=== PATIENT | male | born 1955 | race Asian ===

== ENCOUNTER 2016-09-07 08:11 | Outpatient (CLI) | payer OTHER ==
[2016-09-07 09:01] LABS: BILIRUBIN,URINE NEGATIVE (NEGATIVE); BLOOD, URINE NEGATIVE (NEGATIVE); CLARITY/URINE CLEAR (CLEAR); COLOR,URINE YELLOW (YELLOW); GLUCOSE,URINE 3+ (NEGATIVE); KETONES,URINE TRACE (NEGATIVE); LEUKOCYTE ESTERASE ,URINE NEGATIVE (NEGATIVE); NITRITE, URINE NEGATIVE (NEGATIVE); PROTEIN URINE NEGATIVE (NEGATIVE); UROBILINOGEN,URINE 0.2 (0.2-1.0)
[2016-09-07 09:13] LABS: BASOPHILS % (AUTO) 0.3 % (0.0-2.0); EOSINOPHILS # (AUTO) 0.2 K/uL (0.0-0.4); EOSINOPHILS % (AUTO) 3.5 % (0.0-4.0); HEMATOCRIT 46.2 % (36-54); HEMOGLOBIN 15.1 g/dL (14.0-18.0); LYMPHOCYTES # (AUTO) 1.9 K/uL (1.0-5.5); LYMPHOCYTES % (AUTO) 27.5 % (20.5-51.5); MEAN CORPUSCULAR HEMOGLOBIN 31 pg (27-31); MEAN CORPUSCULAR HGB CONC 33 % (32-36); MEAN CORPUSCULAR VOLUME 94 fL (79.0-98.0); MONOCYTES # (AUTO) 0.5 K/uL (0.0-1.0); MONOCYTES % (AUTO) 6.8 % (1.7-9.3); NEUTROPHILS # (AUTO) 4.5 K/uL (1.8-7.7); NEUTROPHILS % (AUTO) 61.9 % (40.0-70.0); PLATELET COUNT (AUTO) 160 K/uL (130-430); RED BLOOD CELL COUNT(AUTO) 4.91 MIL/uL (4.2-6.2); RED CELL DISTRIBUTION WIDTH 12.3 % (9.0-15.0); WHITE BLOOD COUNT (AUTO) 7.1 K/uL (4.8-10.8)
[2016-09-07 09:29] LABS: ALBUMIN 3.8 g/dL (3.4-4.8); CALCIUM 8.7 mg/dL (8.4-11.0); CREATININE 0.97 mg/dL (0.55-1.30); POTASSIUM 3.7 mmol/L (3.5-5.1); THYROID STIMULATING HORMONE 0.44 uIu/mL (0.34-4.82); TOTAL BILIRUBIN 0.9 mg/dL (0.0-1.0); TOTAL PROTEIN, SERUM 7.3 g/dL (6.4-8.3)
[2016-09-09 09:47] LABS: HEMOGLOBIN A1C 6.8 % (4.8-5.6)
[2016-09-10 00:10] LABS: PROSTATE SPECIFIC AG 0.8 ng/mL (0.0-4.0)
== END 2016-09-07 20:08 | disposition home or self-care (01) ==
LOC: SLB 08:11
PROVIDERS: ATTEND Family Medicine
DX: Z12.11 Encounter for screening for malignant neoplasm of colon (principal); Z12.5 Encounter for screening for malignant neoplasm of prostate; R79.89 Other specified abnormal findings of blood chemistry; Z83.3 Family history of diabetes mellitus
CPT/HCPCS: 36415; 80053; 80061; 81003; 82272; 83036; 84153; 84439; 84443-TC; 85025

== ENCOUNTER 2017-02-08 08:09 | Outpatient (CLI) | payer OTHER ==
[2017-02-08 08:57] LABS: BILIRUBIN,URINE NEGATIVE (NEGATIVE); BLOOD, URINE NEGATIVE (NEGATIVE); CLARITY/URINE CLEAR (CLEAR); COLOR,URINE YELLOW (YELLOW); GLUCOSE,URINE 3+ (NEGATIVE); KETONES,URINE NEGATIVE (NEGATIVE); LEUKOCYTE ESTERASE ,URINE NEGATIVE (NEGATIVE); NITRITE, URINE NEGATIVE (NEGATIVE); PH,URINE 5.5 (5.0-8.0); PROTEIN URINE NEGATIVE (NEGATIVE); UROBILINOGEN,URINE 0.2 (0.2-1.0)
[2017-02-08 09:18] LABS: CALCIUM 9.2 mg/dL (8.4-11.0); CREATININE 0.79 mg/dL (0.55-1.30); POTASSIUM 3.8 mmol/L (3.5-5.1)
[2017-02-08 09:25] LABS: BACTERIA,URINE FEW /HPF (None Seen); MUCUS,URINE 1+ /LPF (None Seen); RBC,URINE 0-3 /HPF (0-3); WBC,URINE 0-3 /HPF (0-3)
[2017-02-10 18:48] LABS: CREATININE, URINE 112.9 mg/dL; MICROALBUMIN URINE RANDOM 3.7 ug/ml (NOT ESTABLISHED); MICROALBUMIN/CREAT RATIO, UR 3.3 MG/G CRE (0.0-30.0)
== END 2017-02-08 19:31 | disposition home or self-care (01) ==
LOC: SLB 08:09
PROVIDERS: ATTEND Family Medicine
DX: E11.9 Type 2 diabetes mellitus without complications (principal)
CPT/HCPCS: 36415; 80048; 80061; 81000-TC; 82043; 82570; 83036

== ENCOUNTER 2017-03-11 11:56 | Emergency (ER) | payer OTHER ==
[~2017-03-11] VITALS: Ht 165.1 cm; Wt 69.4 kg
[2017-03-11 11:56] VITALS: BP_SYST 133
--- NOTE | 2017-03-11 11:59 | NUR ---
Patient triaged and placed in waiting room. VSS and patient appears in no acute distress at this time. Accompanied by SELF, awaiting available bed, and MD notified of need for MSE.
--- NOTE | 2017-03-11 12:00 | NUR ---
Note virgil in ED - 03/11/17 at 1602 by [email or web address] Pt resting comfortably in hospital. No acute distress. Will continue to monitor.
--- NOTE | 2017-03-11 12:56 | NUR ---
Patient to ER bed 5 to gown for evaluation. Side rails up. Report given to Ana María FAULKNER.
--- NOTE | 2017-03-11 13:00 | NUR ---
Pt complains of having the flu since Friday. Per patient at home he had a temperature, cough and congestion. Pt denies N/V or diarrhea. No other injuries/complaints per patient or noted.
--- NOTE | 2017-03-11 13:02 | NUR ---
ER Dr. Gordon at bedside examining patient.
[2017-03-11] MEDS: OSELTAMIVIR PHOSPHATE 75 MG CAPSULE PO ONE (14:04)
[2017-03-11] MEDS: ONDANSETRON HCL 4 MG/2 ML VIAL IVP ONE (14:05)
[2017-03-11] MEDS: KETOROLAC TROMETHAMINE 30 MG VIAL IVP ONE (14:06)
[2017-03-11] MEDS: NACL 0.9% 1,000 ML IV ONE (14:07)
--- NOTE | 2017-03-11 14:25 | NUR ---
Pt resting comfortably in hospital bed. No acute distress. Will continue to monitor.
[2017-03-11 15:20] VITALS: BP_SYST 129
--- NOTE | 2017-03-11 15:20 | NUR ---
Patient given written and verbal discharge instructions and verbalizes understanding. ER MD discussed with patient the results and treatment provided. Patient in stable condition. ID arm band removed. IV catheter removed intact and dressing applied, no active bleeding. Rx of Promethazine, Tylenol, Tamiflu, Zofran given. Patient educated on pain management and to follow up with PMD. Pain Scale 0. Opportunity for questions provided and answered.
== END 2017-03-11 15:20 | disposition home or self-care (01) ==
LOC: SED 11:56
DX: J09.X2 Influenza due to identified novel influenza A virus with other respiratory manifestations (principal); E11.9 Type 2 diabetes mellitus without complications; I10 Essential (primary) hypertension; E78.5 Hyperlipidemia, unspecified
CPT/HCPCS: 36415; 82962; 86710; 96361; 96374; 96375; 99284; G9035; J1885; J2405; J7030

== ENCOUNTER 2017-09-19 08:15 | Outpatient (CLI) | payer OTHER ==
[2017-09-19 09:59] LABS: CHOLESTEROL 144 mg/dL (<200); HDL CHOLESTEROL 60 mg/dL (>45); LDL CHOLESTEROL 85 mg/dL (<100); TRIGLYCERIDES 61 mg/dL (30-150)
[2017-09-19 10:15] LABS: BILIRUBIN,URINE NEGATIVE (NEGATIVE); BLOOD, URINE NEGATIVE (NEGATIVE); CLARITY/URINE CLEAR (CLEAR); COLOR,URINE YELLOW (YELLOW); GLUCOSE,URINE 3+ (NEGATIVE); KETONES,URINE NEGATIVE (NEGATIVE); LEUKOCYTE ESTERASE ,URINE NEGATIVE (NEGATIVE); NITRITE, URINE NEGATIVE (NEGATIVE); PH,URINE 5.5 (5.0-8.0); PROTEIN URINE NEGATIVE (NEGATIVE); UROBILINOGEN,URINE 0.2 (0.2-1.0)
[2017-09-19 10:21] LABS: BACTERIA,URINE FEW /HPF (None Seen); MUCUS,URINE None Seen /LPF (None Seen); RBC,URINE 0-3 /HPF (0-3); WBC,URINE NONE SEEN /HPF (0-3)
[2017-09-20 19:22] LABS: CREATININE, URINE 119.3 mg/dL; MICROALBUMIN/CREAT RATIO, UR 3.9 MG/G CRE (0.0-30.0)
[2017-09-20 19:23] LABS: MICROALBUMIN URINE RANDOM 4.7 ug/ml (NOT ESTABLISHED)
== END 2017-09-19 20:34 | disposition home or self-care (01) ==
LOC: SLB 08:15
PROVIDERS: ATTEND Family Medicine
DX: E11.9 Type 2 diabetes mellitus without complications (principal)
CPT/HCPCS: 36415; 80061; 81000-TC; 82043; 82570; 83036

== ENCOUNTER 2017-12-05 08:25 | Outpatient (CLI) | payer OTHER ==
[2017-12-05 09:24] LABS: BILIRUBIN,URINE NEGATIVE (NEGATIVE); BLOOD, URINE NEGATIVE (NEGATIVE); CLARITY/URINE CLEAR (CLEAR); COLOR,URINE YELLOW (YELLOW); GLUCOSE,URINE 3+ (NEGATIVE); KETONES,URINE NEGATIVE (NEGATIVE); LEUKOCYTE ESTERASE ,URINE NEGATIVE (NEGATIVE); NITRITE, URINE NEGATIVE (NEGATIVE); PROTEIN URINE NEGATIVE (NEGATIVE); UROBILINOGEN,URINE 0.2 (0.2-1.0)
[2017-12-05 09:44] LABS: CALCIUM 9.3 mg/dL (8.4-11.0); CREATININE 0.69 mg/dL (0.55-1.30); POTASSIUM 3.8 mmol/L (3.5-5.1)
[2017-12-05 09:51] LABS: TOTAL BILIRUBIN 0.9 mg/dL (0.0-1.0)
[2017-12-05 09:57] LABS: BACTERIA,URINE RARE /HPF (None Seen); MUCUS,URINE 1+ /LPF (None Seen); RBC,URINE 0-3 /HPF (0-3); WBC,URINE 0-3 /HPF (0-3)
== END 2017-12-05 19:25 | disposition home or self-care (01) ==
LOC: SLB 08:25
PROVIDERS: ATTEND Family Medicine
DX: E11.9 Type 2 diabetes mellitus without complications (principal)
CPT/HCPCS: 36415; 80053; 81000-TC; 83036

== ENCOUNTER 2018-05-08 08:20 | Outpatient (CLI) | payer OTHER ==
[2018-05-08 09:00] LABS: BILIRUBIN,URINE NEGATIVE (NEGATIVE); BLOOD, URINE NEGATIVE (NEGATIVE); CLARITY/URINE CLEAR (CLEAR); COLOR,URINE YELLOW (YELLOW); GLUCOSE,URINE 3+ (NEGATIVE); KETONES,URINE NEGATIVE (NEGATIVE); LEUKOCYTE ESTERASE ,URINE NEGATIVE (NEGATIVE); NITRITE, URINE NEGATIVE (NEGATIVE); PH,URINE 5.5 (5.0-8.0); PROTEIN URINE NEGATIVE (NEGATIVE); UROBILINOGEN,URINE 0.2 (0.2-1.0)
[2018-05-08 09:21] LABS: BACTERIA,URINE RARE /HPF (None Seen); MUCUS,URINE 1+ /LPF (None Seen); RBC,URINE 0-3 /HPF (0-3); WBC,URINE 0-3 /HPF (0-3)
[2018-05-08 09:28] LABS: CALCIUM 9.1 mg/dL (8.4-11.0); CREATININE 0.84 mg/dL (0.55-1.30); POTASSIUM 3.8 mmol/L (3.5-5.1); TOTAL BILIRUBIN 0.9 mg/dL (0.0-1.0)
[2018-05-09 13:53] LABS: CREATININE, URINE 99.7 mg/dL; MICROALBUMIN URINE RANDOM 5.1 ug/ml (NOT ESTABLISHED); MICROALBUMIN/CREAT RATIO, UR 5.1 MG/G CRE (0.0-30.0)
== END 2018-05-08 19:30 | disposition home or self-care (01) ==
LOC: SLB 08:20
PROVIDERS: ATTEND Family Medicine
DX: E11.9 Type 2 diabetes mellitus without complications (principal)
CPT/HCPCS: 36415; 80053; 80061; 81000-TC; 82043; 82570; 83036

== ENCOUNTER 2018-07-17 10:42 | Outpatient (CLI) | payer OTHER | END 2018-07-17 21:04 | disposition home or self-care (01) | LOC: SRD 10:42 | PROVIDERS: ATTEND Family Medicine | DX: Z20.1 Contact with and (suspected) exposure to tuberculosis (principal) | CPT/HCPCS: 71046-TC ==

== ENCOUNTER 2018-09-01 09:40 | Outpatient (CLI) | payer OTHER ==
[2018-09-01 11:55] LABS: BILIRUBIN,URINE NEGATIVE (NEGATIVE); BLOOD, URINE NEGATIVE (NEGATIVE); CLARITY/URINE CLEAR (CLEAR); COLOR,URINE YELLOW (YELLOW); GLUCOSE,URINE 3+ (NEGATIVE); KETONES,URINE NEGATIVE (NEGATIVE); LEUKOCYTE ESTERASE ,URINE NEGATIVE (NEGATIVE); NITRITE, URINE NEGATIVE (NEGATIVE); PROTEIN URINE NEGATIVE (NEGATIVE); UROBILINOGEN,URINE 0.2 (0.2-1.0)
[2018-09-01 12:31] LABS: BACTERIA,URINE RARE /HPF (None Seen); MUCUS,URINE 1+ /LPF (None Seen); RBC,URINE 0-3 /HPF (0-3); WBC,URINE 0-3 /HPF (0-3)
== END 2018-09-01 20:48 | disposition home or self-care (01) ==
LOC: SLB 09:40
PROVIDERS: ATTEND Family Medicine
DX: R30.0 Dysuria (principal)
CPT/HCPCS: 81000-TC; 87086

== ENCOUNTER 2018-09-22 08:00 | Outpatient (CLI) | payer OTHER ==
[2018-09-22 08:44] LABS: ALANINE AMINOTRANSFERASE 33 U/L (12-78); ALBUMIN 3.9 g/dL (3.4-4.8); ASPARTATE AMINOTRANSFERASE 18 U/L (10-37); CALCIUM 9.6 mg/dL (8.4-11.0); CHLORIDE 105 mmol/L (98-107); CHOLESTEROL 172 mg/dL (<200); CREATININE 0.94 mg/dL (0.55-1.30); GLUCOSE 138 mg/dL (70-99); HDL CHOLESTEROL 62 mg/dL (>45); LDL CHOLESTEROL 96 mg/dL (<100); POTASSIUM 3.7 mmol/L (3.5-5.1); SODIUM SERUM 137 mmol/L (136-145); TOTAL BILIRUBIN 0.9 mg/dL (0.0-1.0); TRIGLYCERIDES 100 mg/dL (30-150); UREA NITROGEN, BLOOD 25 mg/dL (8-21)
[2018-09-22 08:44] LABS: BILIRUBIN,URINE NEGATIVE (NEGATIVE); BLOOD, URINE NEGATIVE (NEGATIVE); CLARITY/URINE CLEAR (CLEAR); COLOR,URINE YELLOW (YELLOW); GLUCOSE,URINE 3+ (NEGATIVE); KETONES,URINE NEGATIVE (NEGATIVE); LEUKOCYTE ESTERASE ,URINE NEGATIVE (NEGATIVE); NITRITE, URINE NEGATIVE (NEGATIVE); PH,URINE 5.5 (5.0-8.0); PROTEIN URINE NEGATIVE (NEGATIVE); UROBILINOGEN,URINE 0.2 (0.2-1.0)
[2018-09-22 08:47] LABS: BACTERIA,URINE RARE /HPF (None Seen); RBC,URINE 0-3 /HPF (0-3); WBC,URINE 0-3 /HPF (0-3)
[2018-09-22 08:48] LABS: ANION GAP < 3 (5-15); GFR AFRICAN AMERICAN 105 mL/min (>90)
== END 2018-09-22 21:05 | disposition home or self-care (01) ==
LOC: SLB 08:00
PROVIDERS: ATTEND Family Medicine
DX: E11.9 Type 2 diabetes mellitus without complications (principal)
CPT/HCPCS: 36415; 80053; 80061; 81000-TC; 82043; 82570; 83036

== ENCOUNTER 2018-09-28 10:35 | Outpatient (CLI) | payer OTHER | END 2018-09-29 13:43 | disposition home or self-care (01) | LOC: SRD 10:35 | PROVIDERS: ATTEND Family Medicine | DX: M47.816 Spondylosis without myelopathy or radiculopathy, lumbar region (principal); I70.0 Atherosclerosis of aorta | CPT/HCPCS: 72110 ==

== ENCOUNTER 2018-10-20 09:12 | Outpatient (CLI) | payer OTHER ==
[2018-11-01 15:26] LABS: HEMOGLOBIN A1C 6.5 % (4.8-5.6)
[2018-11-04 00:20] LABS: PROSTATE SPECIFIC AG 2.4 ng/mL (0.0-4.0)
== END 2018-10-20 20:54 | disposition home or self-care (01) ==
LOC: SUS 09:12
PROVIDERS: ATTEND Family Medicine
DX: N28.89 Other specified disorders of kidney and ureter (principal); I70.0 Atherosclerosis of aorta; I71.9 Aortic aneurysm of unspecified site, without rupture
CPT/HCPCS: 36415; 76700-TC; 83036; 84153

== ENCOUNTER 2019-01-12 09:08 | Outpatient (CLI) | payer OTHER ==
[2019-01-12 09:41] LABS: BILIRUBIN,URINE NEGATIVE (NEGATIVE); BLOOD, URINE NEGATIVE (NEGATIVE); CLARITY/URINE CLEAR (CLEAR); COLOR,URINE YELLOW (YELLOW); GLUCOSE,URINE 3+ (NEGATIVE); KETONES,URINE NEGATIVE (NEGATIVE); LEUKOCYTE ESTERASE ,URINE NEGATIVE (NEGATIVE); NITRITE, URINE NEGATIVE (NEGATIVE); PROTEIN URINE NEGATIVE (NEGATIVE); UROBILINOGEN,URINE 0.2 (0.2-1.0)
[2019-01-12 09:47] LABS: BACTERIA,URINE FEW /HPF (None Seen); RBC,URINE 0-3 /HPF (0-3); WBC,URINE 0-3 /HPF (0-3)
[2019-01-12 09:48] LABS: MUCUS,URINE None Seen /LPF (None Seen)
[2019-01-12 10:00] LABS: CALCIUM 8.9 mg/dL (8.4-11.0); CREATININE 0.8 mg/dL (0.55-1.30); POTASSIUM 3.9 mmol/L (3.5-5.1); TOTAL BILIRUBIN 0.9 mg/dL (0.0-1.0)
[2019-01-14 15:05] LABS: CREATININE, URINE 100.3 mg/dL; MICROALBUMIN URINE RANDOM 4.9 ug/ml (NOT ESTABLISHED); MICROALBUMIN/CREAT RATIO, UR 4.9 MG/G CRE (0.0-30.0)
== END 2019-01-12 21:07 | disposition home or self-care (01) ==
LOC: SLB 09:08
PROVIDERS: ATTEND Family Medicine
DX: E11.9 Type 2 diabetes mellitus without complications (principal)
CPT/HCPCS: 36415; 80053; 80061; 81000-TC; 82043; 82570; 83036

== ENCOUNTER 2019-03-25 10:53 | Outpatient (CLI) | payer OTHER | END 2019-03-25 21:21 | disposition home or self-care (01) | LOC: SLB 10:53 | PROVIDERS: ATTEND Family Medicine | DX: Z11.1 Encounter for screening for respiratory tuberculosis (principal) | CPT/HCPCS: 36415; 86480 ==

== ENCOUNTER 2019-11-13 08:31 | Outpatient (CLI) | payer OTHER ==
[2019-11-13 10:00] LABS: ALBUMIN 3.7 g/dL (3.4-4.8); BILIRUBIN,DIRECT 0.3 mg/dL (0.0-0.3); CALCIUM 8.9 mg/dL (8.4-11.0); CREATININE 1.02 mg/dL (0.55-1.30); POTASSIUM 3.7 mmol/L (3.5-5.1); TOTAL BILIRUBIN 0.9 mg/dL (0.0-1.0)
== END 2019-11-13 20:53 | disposition home or self-care (01) ==
LOC: SLB 08:31
PROVIDERS: ATTEND Family Medicine
DX: E11.9 Type 2 diabetes mellitus without complications (principal)
CPT/HCPCS: 36415; 80048; 80061; 80076; 82043; 82570; 83036

== ENCOUNTER 2020-03-09 08:53 | Outpatient (CLI) | payer OTHER, SELFPAY ==
[2020-03-09 11:24] LABS: BILIRUBIN,URINE NEGATIVE (NEGATIVE); BLOOD, URINE NEGATIVE (NEGATIVE); CLARITY/URINE CLEAR (CLEAR); COLOR,URINE YELLOW (YELLOW); GLUCOSE,URINE 2+ (NEGATIVE); KETONES,URINE 1+ (NEGATIVE); LEUKOCYTE ESTERASE ,URINE NEGATIVE (NEGATIVE); NITRITE, URINE NEGATIVE (NEGATIVE); PH,URINE 5.5 (5.0-8.0); PROTEIN URINE NEGATIVE (NEGATIVE); UROBILINOGEN,URINE 0.2 (0.2-1.0)
[2020-03-09 11:25] LABS: BASOPHILS % (AUTO) 0.2 % (0.0-2.0); EOSINOPHILS # (AUTO) 0.2 K/uL (0.0-0.4); HEMATOCRIT 46.7 % (36-54); HEMOGLOBIN 15.5 g/dL (14.0-18.0); LYMPHOCYTES # (AUTO) 1.6 K/uL (1.0-5.5); LYMPHOCYTES % (AUTO) 21.6 % (20.5-51.5); MEAN CORPUSCULAR HEMOGLOBIN 32 pg (27-31); MEAN CORPUSCULAR HGB CONC 33 % (32-36); MEAN CORPUSCULAR VOLUME 97 fL (79.0-98.0); MONOCYTES # (AUTO) 0.5 K/uL (0.0-1.0); MONOCYTES % (AUTO) 7.1 % (1.7-9.3); NEUTROPHILS # (AUTO) 5.1 K/uL (1.8-7.7); NEUTROPHILS % (AUTO) 68.1 % (40.0-70.0); PLATELET COUNT (AUTO) 134 K/uL (130-430); RED BLOOD CELL COUNT(AUTO) 4.81 MIL/uL (4.2-6.2); RED CELL DISTRIBUTION WIDTH 12.6 % (9.0-15.0); WHITE BLOOD COUNT (AUTO) 7.4 K/uL (4.8-10.8)
[2020-03-09 11:43] LABS: ALBUMIN 3.8 g/dL (3.4-4.8); CALCIUM 8.9 mg/dL (8.4-11.0); CREATININE 0.71 mg/dL (0.55-1.30); FREE T4 (FREE THYROXINE) 1.1 ng/dl (0.8-1.5); POTASSIUM 3.9 mmol/L (3.5-5.1); THYROID STIMULATING HORMONE 0.58 uIu/mL (0.36-3.74)
[2020-03-10 07:58] LABS: HEMOGLOBIN A1C 7.7 % (4.8-5.6)
[2020-03-10 11:43] LABS: CREATININE, URINE 127.8 mg/dL; MICROALBUMIN URINE RANDOM 9.5 ug/ml (NOT ESTABLISHED)
== END 2020-03-09 20:31 | disposition home or self-care (01) ==
LOC: SLB 08:53
PROVIDERS: ATTEND Family Medicine
DX: Z12.11 Encounter for screening for malignant neoplasm of colon (principal); Z12.5 Encounter for screening for malignant neoplasm of prostate; E11.9 Type 2 diabetes mellitus without complications
CPT/HCPCS: 36415; 80053; 80061; 81003; 82043; 82272; 82570; 83036; 84153; 84439; 84443-TC; 85025

== ENCOUNTER → 2020-06-20 | Outpatient (CLI) | payer OTHER | END | disposition home or self-care (01) | LOC: SCA 09:53 | DX: I11.9 Hypertensive heart disease without heart failure (principal) | CPT/HCPCS: 93306 ==

== ENCOUNTER 2020-07-06 08:24 | Outpatient (CLI) | payer OTHER ==
[2020-07-06 09:31] LABS: ALBUMIN 3.8 g/dL (3.4-4.8); BILIRUBIN,URINE NEGATIVE (NEGATIVE); BLOOD, URINE NEGATIVE (NEGATIVE); CALCIUM 8.5 mg/dL (8.4-11.0); CLARITY/URINE CLEAR (CLEAR); COLOR,URINE YELLOW (YELLOW); CREATININE 0.79 mg/dL (0.55-1.30); GLUCOSE,URINE 2+ (NEGATIVE); KETONES,URINE NEGATIVE (NEGATIVE); LEUKOCYTE ESTERASE ,URINE NEGATIVE (NEGATIVE); NITRITE, URINE NEGATIVE (NEGATIVE); PH,URINE 5.5 (5.0-8.0); POTASSIUM 3.9 mmol/L (3.5-5.1); PROTEIN URINE NEGATIVE (NEGATIVE); TOTAL BILIRUBIN 0.6 mg/dL (0.0-1.0); UROBILINOGEN,URINE 0.2 (0.2-1.0)
[2020-07-06 09:40] LABS: BACTERIA,URINE RARE /HPF (None Seen); MUCUS,URINE 1+ /LPF (None Seen); RBC,URINE 0-3 /HPF (0-3); WBC,URINE 0-3 /HPF (0-3)
== END 2020-07-07 16:05 | disposition home or self-care (01) ==
LOC: SLB 08:24
PROVIDERS: ATTEND Internal Medicine Cardiovascular Disease
DX: I12.9 Hypertensive chronic kidney disease with stage 1 through stage 4 chronic kidney disease, or unspecified chronic kidney disease (principal); E11.22 Type 2 diabetes mellitus with diabetic chronic kidney disease; N18.9 Chronic kidney disease, unspecified; E78.5 Hyperlipidemia, unspecified
CPT/HCPCS: 36415; 80053; 80061; 81000; 82043; 82570; 83036